=== PATIENT | female | born 1955 | race Caucasian/White ===

== ENCOUNTER 2024-04-12 09:49 | Outpatient (CLI) | payer MEDICARE, OTHER | END 2024-04-12 09:50 | disposition home or self-care (01) | LOC: CSHCT 09:49 | PROVIDERS: ATTEND Surgery | DX: K43.9 Ventral hernia without obstruction or gangrene (principal); R91.8 Other nonspecific abnormal finding of lung field; Z98.890 Other specified postprocedural states; R16.0 Hepatomegaly, not elsewhere classified | CPT/HCPCS: 36415; 74177; 82565 ==